=== PATIENT | male | born 1970 | race American Indian/Alaskan Native ===

== ENCOUNTER 2017-06-01 04:56 | Emergency (ER) | payer SELFPAY ==
[2017-06-01] MEDS ORDERED: DUONEB *Not for PRN Use IH ONE ×2 (05:00→05:13)
[2017-06-01] MEDS ORDERED: DUONEB *Not for PRN Use IH SCH (08:00)
== END 2017-06-01 05:39 | disposition left against medical advice (07) ==
LOC: ED 04:56
DX: J45.909 Unspecified asthma, uncomplicated (principal); Z53.21 Procedure and treatment not carried out due to patient leaving prior to being seen by health care provider
CPT/HCPCS: 94640

== ENCOUNTER 2017-06-21 00:32 | Emergency (ER) | payer SELFPAY ==
[2017-06-21 00:58] VITALS: BP 148/90
== END 2017-06-21 00:50 | disposition left against medical advice (07) ==
LOC: ED 00:32
DX: J45.909 Unspecified asthma, uncomplicated (principal); Z53.21 Procedure and treatment not carried out due to patient leaving prior to being seen by health care provider

== ENCOUNTER 2018-06-21 22:57 | Emergency (ER) | payer SELFPAY ==
[~2018-06-21 22:57] MED LIST: DUONEB *Not for PRN Use IH ONE; PROVENTIL IH ONE
[2018-06-21 23:31] VITALS: BP 134/84
[2018-06-22] MEDS ORDERED: PROVENTIL IH ONE (03:44)
[2018-06-22] MEDS ORDERED: DUONEB *Not for PRN Use IH ONE (03:44)
== END 2018-06-22 01:08 | disposition left against medical advice (07) ==
LOC: ED 22:57
DX: R06.00 Dyspnea, unspecified (principal); Z53.21 Procedure and treatment not carried out due to patient leaving prior to being seen by health care provider
CPT/HCPCS: 94640

== ENCOUNTER 2019-04-15 22:12 | Emergency (ER) | payer SELFPAY ==
[2019-04-15 22:24] VITALS: BP 135/88
== END 2019-04-15 22:30 | disposition left against medical advice (07) ==
LOC: ED 22:12
DX: R06.02 Shortness of breath (principal); Z53.21 Procedure and treatment not carried out due to patient leaving prior to being seen by health care provider

== ENCOUNTER 2019-04-18 06:37 | Emergency (ER) | payer OTHER ==
[2019-04-18 06:41] VITALS: BP 129/86
[2019-04-18] MEDS ORDERED: DUONEB *Not for PRN Use IH ONE (06:43)
== END 2019-04-18 07:44 | disposition left against medical advice (07) ==
LOC: ED 06:37
DX: R06.00 Dyspnea, unspecified (principal); R05 Cough; Z53.21 Procedure and treatment not carried out due to patient leaving prior to being seen by health care provider
CPT/HCPCS: 94640

== ENCOUNTER 2019-04-18 14:56 | Emergency (ER) | payer OTHER ==
[2019-04-18 15:06] VITALS: BP 132/97
--- NOTE | 2019-04-18 15:07 | Emergency Department Report ---
Blank Doc - Documentation Documentation: this is a 48-year-old male that presents with SOB. HX of asthma. Patient was here in the morning and received a breathing treatment and left without being seen. This initial assessment/diagnostic orders/clinical plan/treatment(s) is/are subject to change based on patient's health status, clinical progression and re- assessment by fellow clinical providers in the ED. Further treatment and workup at subsequent clinical providers discretion. Patient/guardians urged not to e wilma from the ED as their condition may be serious if not clinically assessed and managed. Initial orders include: 1- Patient sent to [facility] for further evaluation and treatment
[2019-04-18] MEDS ORDERED: DUONEB *Not for PRN Use IH ONE (15:40)
[2019-04-18] MEDS ORDERED: SOLU-Medrol IV ONE (15:41)
[2019-04-18] MEDS ORDERED: MAGNESIUM SULFATE 2GM/50ML 2 GM/50 ML BAG IV ONE (15:41)
--- NOTE | 2019-04-18 15:41 | Emergency Department Report ---
Minor Respiratory - HPI Chief Complaint: Dyspnea/Respdistress Stated Complaint: WANDA Time Seen by Provider: 04/18/19 15:04 Duration: 2 Days Pain Location: Chest Severity: moderate Minor Respiratory: Yes Able to Tolerate Fluids, Yes Cough, No Rhinorrhea, No Sore Throat, No Ear Pain, No Sick Contacts, No Hemoptysis, No Chest Pain, No Shortness of Breath, No Fever Other History: Patient is a 48-year-old male comes to the ER today complaining of shortness of breath and wheezing. Patient has asthma. Patient was in the ER this morning but left prior to treatment because his had to get to work. Patient denies being on any home medications at this time.[facility]. [facility] ED Review of Systems ROS: Stated complaint: WANDA Other details as noted in HPI Comment: All other systems reviewed and negative ED Past Medical Hx - Past Medical History Previous Medical History?: Yes Hx Asthma: Yes Hx COPD: Yes - Surgical History Past Surgical History?: No - Family History Family history: no significant - Social History Smoking Status: Current Every Day Smoker Substance Use Type: Alcohol - Medications Home Medications: Home Medications Medication Instructions Recorded Confirmed Last Taken Type Albuterol Sulfate [Proair 90 mcg IH QID PRN #1 aer.[email or web address] 04/18/19 Unknown Rx Respiclick] Azithromycin [Zithromax Z-RODRIGUEZ] 250 mg PO DAILY #6 tablet 04/18/19 Unknown Rx Cetirizine HCl [ZyrTEC] 10 mg PO DAILY #30 capsule 04/18/19 Unknown Rx Fluticasone [Flonase] 1 spray NS QDAY #1 bottle 04/18/19 Unknown Rx predniSONE [Deltasone] 20 mg PO DAILY #5 tablet 04/18/19 Unknown Rx Minor Respiratory Exam - Exam General: Vital signs noted. No distress. Alert and acting appropriately. Head Head exam: Present: atraumatic, normocephalic - Eye Eye exam: Present: normal appearance, EOMI. Absent: nystagmus - ENT ENT exam: Present: normal exam, normal orophraynx, mucous membranes moist, normal external ear exam, no lymphadenopathy - Neck Neck exam: Present: normal inspection, full ROM. Absent: tenderness, me ningismus - Respiratory Respiratory exam: Present: lung sounds with bilateral wheezing on admit. No purulent sputum. - Cardiovascular Cardiovascular Exam: Present: regular rate, normal rhythm, normal heart sounds. Absent: bradycardia, tachycardia, irregular rhythm, systolic murmur, diastolic murmur, rubs, gallop, JVD, edema - GI/Abdominal GI/Abdominal exam: Present: soft, non tender on light and deep palpation. Absent: distended, tenderness, guarding, rebound, rigid, pulsatile mass - Rectal Rectal exam: Present: deferred - Extremities Exam Extremities exam: Present: normal inspection, full ROM, other (2+ pulses noted in the bilateral upper extremities. Bilateral lower extremities with 2+ DP bilateral. Full ROM. Absent: calf tenderness - Back Exam Back exam: Present: normal inspection, full ROM. Absent: tenderness, CVA tenderness (R), CVA tenderness (L), paraspinal tenderness, vertebral tenderness - Neurological Exam Neurological exam: Present: alert, oriented X3, normal gait, other (Extraocular movements intact. Tongue midline. No facial droop. Facial sensation intact to light touch in the V1, V2, V3 distribution bilaterally. 5 and 5 strength in 4 extremities.. Sensation is intact to light touch in 4 extremities.). Absent: motor sensory deficit - Psychiatric Psychiatric exam: normal affect and mood - Skin Skin exam: Present: warm, dry, intact, normal color. Absent: rash Neurologic: Alert and oriented, no deficits. Musculoskeletal: Unremarkable. ED Course Vital Signs 04/18/19 15:05 Temperature 98.5 F Pulse Rate 93 H Respiratory 16 Rate Blood Pressure 132/97 O2 Sat by Pulse 94 Oximetry ED Medical Decision Making - Radiology Data Radiology results: report reviewed, image reviewed - Medical Decision Making xray neg medicated in ER with improvement - decrease wheezing no fever. NO PURULENT SPUTUM AMBULATORY WITHOUT SOB will dc home with dc plan of care and pcp follow up Vital Signs 04/18/19 15:05 Temperature 98.5 F Pulse Rate 93 H Respiratory 16 Rate Blood Pressure 132/97 O2 Sat by Pulse 94 Oximetry - Differential Diagnosis asthma ae with or without infection; ro pna Critical care attestation.: If time is entered above; I have spent that time in minutes in the direct care of this critically ill patient, excluding procedure time. ED Disposition Clinical Impression: Asthma with acute exacerbation, URTI (acute upper respiratory infection) Disposition: DC-01 TO HOME OR SELFCARE Is pt being admited?: No Does the pt Need Aspirin: No Condition: Stable Instructions: Asthma (ED) Additional Instructions: DIET TOLERATED MEDS ORDERED TODAY IN ER FOLLOW INSTRUCTIONS ON THE BOTTLE FOLLOW UP PCP WITHIN 48 HOURS TO ENSURE YOU ARE GETTING BETTER ACTIVITY TOLERATED MOTRIN OR TYLENOL FOR PAIN OR FEVER RETURN TO THE ER FOR WORSENING SYMPTOMS NOT RELIEVED BY YOUR MEDICATIONS. Prescriptions: predniSONE [Deltasone] 20 mg PO DAILY #5 tablet Fluticasone [Flonase] 1 spray NS QDAY #1 bottle Albuterol Sulfate [Proair Respiclick] 90 mcg IH QID PRN #1 aer.pow.ba PRN Reason: Wheezing Azithromycin [Zithromax Z-RODRIGUEZ] 250 mg PO DAILY #6 tablet Cetirizine HCl [ZyrTEC] 10 mg PO DAILY #30 capsule Referrals: [facility] [Outside] - 3-5 Days Time of Disposition: 16:49
--- NOTE | 2019-04-18 16:06 | XRay Report ---
PROCEDURE: XR CHEST ROUTINE 2V TECHNIQUE: PA and lateral chest radiographs were obtained. HISTORY: wheezing COMPARISONS: None currently available. FINDINGS: Cardiac silhouette is within normal limits. There is no effusion. There is no pneumothorax. There is no consolidation. There are no suspicious osseous lesions. IMPRESSION: * No acute cardiopulmonary findings. This document is electronically signed by Leandro Alonso MD., Apr 18 2019 04:04:24 PM ET
== END 2019-04-18 17:12 | disposition home or self-care (01) ==
LOC: ED 14:56
DX: J45.901 Unspecified asthma with (acute) exacerbation (principal); J06.9 Acute upper respiratory infection, unspecified; F17.200 Nicotine dependence, unspecified, uncomplicated
CPT/HCPCS: 71046; 96365; 96375; 99284; J2930; J3475